=== PATIENT | male | born 1985 | race African-American/Black ===

== ENCOUNTER 2023-05-10 05:58 | Emergency (ER) | payer OTHER ==
[2023-05-10] MEDS ORDERED: MORPHINE SULFATE 4 MG/ML SYRINGE IV STA (06:37)
[2023-05-10] MEDS ORDERED: SODIUM CHLORIDE 0.9% 1,000 ML IV STA (06:37)
[2023-05-10 06:38] VITALS: TEMP 98.1
--- NOTE | 2023-05-10 06:42 | ED ---
General Adult HPI - General Source: patient, EMS Mode of arrival: EMS Limitations: no limitations <Man Smith - Last Filed: 05/10/23 06:48> <Kaz Christian - Last Filed: 05/10/23 09:06> - History of Present Illness Initial comments: Dictation was produced using [employer] dictation software. please excuse any grammatical, word or spelling errors. Chief Complaint: 37-year-old male presents to the emergency department for testicular pain History of Present Illness: Patient 37-year-old male presents emergency department for testicular pain. Patient brought in by EMS from home. One hour prior to arrival patient experienced severe acute onset left testicular pain. 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 Patient states that this procedures performed 7 or 8 years ago at [facility]. Patient has not had any issues since the procedure. He was sitting down at rest when all of a sudden felt immense and severe testicular pain. He did report associated cramping to the periumbilical area. The ROS documented in this emergency department record has been reviewed and confirmed by me. Those systems with pertinent positive or negative responses have been documented in the HPI. All other systems are other negative and/or noncontributory. (Man Smith) - Related Data Allergies Allergy/AdvReac Type Severity Reaction Status Date / Time No Known Allergies Allergy Verified 05/10/23 06:38 Review of Systems ROS Other: All systems not noted in ROS Statement are negative. <Man Smith - Last Filed: 05/10/23 06:48> ROS Other: All systems not noted in ROS Statement are negative. <Kaz Christian - Last Filed: 05/10/23 09:06> ROS Statement: Those systems with pertinent positive or pertinent negative responses have been documented in the HPI. Past Medical History History of Any Multi-Drug Resistant Organisms: None Reported Smoking Status: Never smoker Past Alcohol Use History: Occasional Past Drug Use History: None Reported <Man Smith - Last Filed: 05/10/23 06:48> General Exam Limitations: no limitations <Man Smith - Last Filed: 05/10/23 06:48> - General Exam Comments Initial Comments: PHYSICAL EXAM: General Impression: Alert and oriented x3, acute distress secondary to pain HEENT: Normocephalic atraumatic, extra-ocular movements intact, pupils equal and reactive to light bilaterally, mucous membranes moist. Cardiovascular: Heart regular rate and rhythm Chest: Able to complete full sentences, no retractions, no tachypnea Abdomen: abdomen soft, non-tender, non-distended, no organomegaly Musculoskeletal: Pulses present and equal in all extremities, no peripheral edema Motor: no focal deficits noted Neurological: CN II-XII grossly intact, no focal motor or sensory deficits noted Skin: Intact with no visualized rashes : No high riding testicle, no scrotal skin asymmetry, tender left testicle without asymmetrical swelling (Man Smith) Course <Man Smith - Last Filed: 05/10/23 06:48> Vital Signs 05/10/23 05:59 Temperature 98.1 F Pulse Rate 94 Respiratory 26 H Rate Blood Pressure 159/99 O2 Sat by Pulse 98 Oximetry - Reevaluation(s) Reevaluation #1: 05/10/23 06:41 [id number] bedside ultrasound was performed showing some blood flow to the left testicle. Case was discussed with on-call urology, Dr. no proximally 5 minutes after patient arrived. Dr. no states that testicular torsion is highly unlikely given that patient had left testicular orchipexy procedure. He does understand that clinically there is strong suspicion of testicular torsion given his clinical presentation. Dr. no still insisted formal ultrasound be performed. He understands that there could be up to a 1 hour delay with performing formal ultrasound. Dr. No understands and still would like formal ultrasound. data reduction technician notified of high priority scan in the emergency department (Man Smith) Medical Decision Making <Man Smith - Last Filed: 05/10/23 06:48> - Lab Data Result diagrams: 05/10/23 06:38 05/10/23 06:38 <Kaz Christian - Last Filed: 05/10/23 09:06> - Medical Decision Making Was pt. sent in by a medical professional or institution (DrLuis Alfredo, PA, DIESEL LOCOMOTIVE ENGINEER, urgent care, hospital, or [place] health care facility...) When possible be specific @ -No Did you speak to anyone other than the patient for history (EMS, parent, family, police, friend...)? What history was obtained from this source @ -No Did you review nursing and triage notes (agree or disagree)? Why? @ -I reviewed and agree with nursing and triage notes Were old charts reviewed (outside hosp., previous admission, EMS record, old EKG, old radiological studies, urgent care reports/EKG's, [place] health care facility records)? Report findings @ -No old charts were reviewed Differential Diagnosis (chest pain, altered mental status, abdominal pain women, abdominal pain men, vaginal bleeding, musculoskeletal, weakness, fever, dyspnea, syncope, headache, dizziness, GI bleed, back pain, seizure, CVA, palpatations, mental health)? @ -Testicular torsion, epididymitis EKG interpreted by me (3pts min.). @ -None done X-rays interpreted by me (1pt min.). @ -None done CT interpreted by me (1pt min.). @ -None done U/S interpreted by me (1pt. min.). @ -Pending scrotal ultrasound What testing was considered but not performed or refused? (CT, X-rays, U/S, labs)? Why? @ -None What meds were considered but not given or refused? Why? @ -None Did you discuss the management of the patient with other professionals (professionals i.e. , PA, DIESEL LOCOMOTIVE ENGINEER, lab, RT, psych nurse, social media marketing analyst, egg buyer, teacher, community liaison officer, comp field case manager)? Give summary @ -See above Was smoking cessation discussed for >3mins.? @ -No Was critical care preformed (if so, how long)? @ -No Were there social determinants of health that impacted care today? How? (Homelessness, low income, unemployed, alcoholism, drug addiction, transportation, low edu. Level, literacy, decrease access to med. care, residential, rehab)? @ -No Was there de-escalation of care discussed even if they declined (Discuss DNR or withdrawal of care, Hospice)? DNR status @ -No What co-morbidities impacted this encounter? (DM, HTN, Smoking, COPD, CAD, Ca ncer, CVA, ARF, Chemo, Hep., AIDS, mental health diagnosis, sleep apnea, morbid obesity)? @ -None Was patient admitted / discharged? Hospital course, mention meds given and route, prescriptions, significant lab abnormalities, going to OR and other pertinent info. @ -37-year-old male with acute onset left testicular pain. He is status post left testicular orchipexy 7 or 8 years ago. Vital signs stable. Patient in acute distress. Concern for recurrent testicular torsion. Case is discussed in detail with on-call urology, Dr. No. Dr. No request formal ultrasound despite delay. Undiagnosed new problem with uncertain prognosis? @ -No Drug Therapy requiring intensive monitoring for toxicity (Heparin, Nitro, Insulin, Cardizem)? @ -No Were any procedures done? @ -No Diagnosis/symptom? Acute, or Chronic, or Acute on Chronic? Uncomplicated (without systemic symptoms) or Complicated (systemic symptoms)? @ -. testiicular pain Side effects of treatment? @ -No Exacerbation, Progression, or Severe Exacerbation? @ -No Poses a threat to life or bodily function? How? (Chest pain, [place], [place], pneumonia, PE, COPD, DKA, ARF, appy, cholecystitis, CVA, Diverticulitis, Homicidal, Suicida l, threat to staff... and all critical care pts) @ -yes Patient care is signed out to Dr. Christian at 7:00 AM for further care. (Man Smith) Patient signed out to me pending results of scrotal ultrasound and urinalysis. Briefly, patient initially presented with left groin pain. Patient has a history of left testicular torsion status post left orchipexy. Patient states it also is in the left lower abdomen. Currently symptoms have resolved. I evaluated the patient after ultrasound. States he has been having frequent urination all morning since on onset of symptoms at 5. Symptoms have since resolved and improved once he did pass urine and would lose may have been a stone as her something that sounded solid at the bottom of his urinal. Sample is now on. Has no pain at this time. No history of kidney stones. Labs are remarkable for mild AK I with a BUN of 21 and creatinine 1.47. Urinalysis remarkable for a small amount of blood present. Remainder the labs are within acceptable limits. Patient is currently resting comfortably and is asymptomatic. I did add on a KUB x-ray to evaluate for any obvious signs of kidney stone. Patient was in agreement this plan. Patient's ultrasound is interpreted by myself reveals no evidence of testicular torsion. KUB x-ray as interpreted by myself reveals no evidence of ur eterolithiasis or kidney stones. I did discuss the case with Dr. No of urology as he was notified earlier and he did evaluate the patient. We both agreed it sounds more like a passed kidney stone. He was in agreement with discharge home. I discussed this with the patient and he remains asymptomatic at this time. We discussed his results and he was in agreement the plan. Strict return precautions discussed. I instructed the patient to follow up with their PCP in the next 1-3 days. I provided contact information for follow up with [facility] PCPs, urology. I explained that the patient should return to the emergency department if they experience any worsening symptoms. Strict return precautions were discussed with the patient. The patient expressed understanding of these instructions. I answered all questions that the patient had. The patient was discharged home in good condition with their prescriptions and follow up information. Diagnosis/symptom? @ -Left lower quadrant abdominal pain, suspect passed ureterolithiasis Acute, or Chronic, or Acute on Chronic? @ -Acute Uncomplicated (without systemic symptoms) or Complicated (systemic symptoms)? @ -Complicated Side effects of treatment? @ -none Exacerbation, Progression, or Severe Exacerbation] @ -no Poses a threat to life or bodily function? @ -no Diagnosis/symptom? @ -Acute kidney injury, mild. Suspect secondary to passed ureterolithiasis Acute, or Chronic, or Acute on Chronic? @ -Acute Uncomplicated (without systemic symptoms) or Complicated (systemic symptoms)? @ -Uncomplicated Side effects of treatment? @ -none Exacerbation, Progression, or Severe Exacerbation] @ -no Poses a threat to life or bodily function? @ -no (Kaz Christian) - Lab Data Lab Results 05/10/23 05/10/23 05/10/23 Range/Units 06:38 06:38 07:45 WBC 8.5 (3.8-10.6) k/uL RBC 4.91 (4.30-5.90) m/uL Hgb 14.9 (13.0-17.5) gm/dL Hct 45.9 (39.0-53.0) % MCV 93.4 (80.0-100.0) fL MCH 30.3 (25.0-35.0) pg MCHC 32.5 (31.0-37.0) g/dL RDW 12.3 (11.5-15.5) % Plt Count 277 (150-450) k/uL MPV 8.8 Neutrophils % 61 % Lymphocytes % 26 % Monocytes % 8 % Eosinophils % 2 % Basophils % 0 % Neutrophils # 5.2 (1.3-7.7) k/uL Lymphocytes # 2.2 (1.0-4.8) k/uL Monocytes # 0.7 (0-1.0) k/uL Eosinophils # 0.2 (0-0.7) k/uL Basophils # 0.0 (0-0.2) k/uL Sodium 137 (137-145) mmol/L Potassium 3.6 (3.5-5.1) mmol/L Chloride 106 (98-107) mmol/L Carbon Dioxide 20 L (22-30) mmol/L Anion Gap 11 mmol/L BUN 21 H (9-20) mg/dL Creatinine 1.47 H (0.66-1.25) mg/dL Est GFR (CKD-EPI)AfAm 70 (>60 ml/min/1.73 sqM) Est GFR (CKD-EPI)NonAf 61 (>60 ml/min/1.73 sqM) Glucose 122 H (74-99) mg/dL Calcium 9.2 (8.4-10.2) mg/dL Total Bilirubin 1.3 (0.2-1.3) mg/dL AST 31 (17-59) U/L ALT 24 (4-49) U/L Alkaline Phosphatase 72 (38-126) U/L Total Protein 6.8 (6.3-8.2) g/dL Albumin 3.9 (3.5-5.0) g/dL Urine Color Colorless Urine Appearance Clear (Clear) Urine pH 5.5 (5.0-8.0) Ur Specific [place] 1.006 (1.001-1.035) Urine Protein Trace H (Negative) Urine Glucose (UA) Negative (Negative) Urine Ketones Trace H (Negative) Urine Blood Small H (Negative) Urine Nitrite Negative (Negative) Urine Bilirubin Negative (Negative) Urine Urobilinogen <2.0 (<2.0) mg/dL Ur Leukocyte Esterase Negative (Negative) Urine RBC 2 (0-5) /hpf Urine WBC <1 (0-5) /hpf Urine Mucus Rare H (None) /hpf Disposition <Man Smith - Last Filed: 05/10/23 06:48> Is patient prescribed a controlled substance at d/c from ED?: No Time of Disposition: 08:40 <Kaz Christian - Last Filed: 05/10/23 09:06> Clinical Impression: Left lower quadrant abdominal pain, THEODORE (acute kidney injury) Narrative: Supsected passed ureterolithiasis (Kaz Christian) Disposition: HOME SELF-CARE Condition: Good Instructions (If sedation given, give patient instructions): Kidney Stones (ED), Abdominal Pain (ED) Referrals: None,Stated [Primary Care Provider] - 1-2 days Jarrett No MD [STAFF PHYSICIAN] - 1-2 days Forms: Area PCPs
[2023-05-10 06:58] LABS: Basophils % (A) 0 %; Eosinophils # (A) 0.2 k/uL (0-0.7); Eosinophils % (A) 2 %; HCT 45.9 % (39.0-53.0); HGB 14.9 gm/dL (13.0-17.5); Lymphocytes # (A) 2.2 k/uL (1.0-4.8); Lymphocytes % (A) 26 %; MCH 30.3 pg (25.0-35.0); MCHC 32.5 g/dL (31.0-37.0); MCV 93.4 fL (80.0-100.0); Mean Platelet Volume 8.8; Monocytes # (A) 0.7 k/uL (0-1.0); Monocytes % (A) 8 %; Neutrophils # (A) 5.2 k/uL (1.3-7.7); Neutrophils % (A) 61 %; Platelet Count 277 k/uL (150-450); RBC 4.91 m/uL (4.30-5.90); RDW 12.3 % (11.5-15.5); WBC 8.5 k/uL (3.8-10.6)
[2023-05-10 07:10] LABS: ALT 24 U/L (4-49); AST 31 U/L (17-59); African American GFR (CKD) 70 (>60 ml/min/1.73 sqM); Albumin 3.9 g/dL (3.5-5.0); Alkaline Phosphatase 72 U/L (38-126); Anion Gap 11 mmol/L; Blood Urea Nitrogen 21 mg/dL (9-20); Calcium 9.2 mg/dL (8.4-10.2); Carbon Dioxide 20 mmol/L (22-30); Chloride 106 mmol/L (98-107); Glucose 122 mg/dL (74-99); Non-African American GFR(CKD) 61 (>60 ml/min/1.73 sqM); Potassium 3.6 mmol/L (3.5-5.1); Sodium 137 mmol/L (137-145); Total Bilirubin 1.3 mg/dL (0.2-1.3); Total Protein 6.8 g/dL (6.3-8.2)
[2023-05-10 08:06] LABS: Appearance,Urine Clear (Clear); Bilirubin,Urine Negative (Negative); Blood,Urine Small (Negative); Color,Urine Colorless; Glucose,Urine (UA) Negative (Negative); Ketones,Urine Trace (Negative); Leukocyte Esterase,Urine Negative (Negative); Mucus,Urine Rare /hpf; Nitrite,Urine Negative (Negative); PH, Urine 5.5 (5.0-8.0); Protein,Urine Trace (Negative); RBC,Urine 2 /hpf (0-5); Specific Gravity,Urine 1.006 (1.001-1.035); Urobilinogen,Urine <2.0 mg/dL (<2.0); WBC,Urine <1 /hpf (0-5)
--- NOTE | 2023-05-10 08:35 | US ---
EXAMINATION TYPE: US scrotum with doppler. TECHNIQUE: Grayscale and color Doppler Duplex imaging performed of the scrotum. DATE OF EXAM: 05/10/2023 COMPARISON: NONE CLINICAL INDICATION: Male, 37 years old with history of testicular pain; Lt sided scrotal pain since 6:30 EXAM MEASUREMENTS: TESTICLES: Right Testicle: 4.3x2.5x3.2 cm Left Testicle: 4.9x2.0x3.1 cm EPIDIDYMIS HEAD: Right Epididymis: 1.4 cm Left Epididymis: 0.7 cm, Lt Epi tail anechoic area noted: 0.5x0.4x0.5cm Doppler performed to assess for testicular vascularity; good bilateral color flow and waveforms are s een. There is no evidence of testicular torsion. Presence of hydroceles: no Presence of varicoceles: Small on the left side Diffuse scrotal wall thickening up to 9 mm. Litharge Mill Operator notes: Pain subsided after patient used urinal, Bilateral blood flow seen, echogenicity similar bilaterally Litharge Mill Operator notes: Some limitations due to thick pubic hair and scrotal wall, lower frequency transdu cer used to assess bloodflow, left sided venous flow difficult to obtain IMPRESSION: 1. No sonographic evidence for testicular torsion or epididymoorchitis. 2. Diffuse scrotal skin thickening up to 9 mm. Correlate for soft tissue edema or cellulitis. 3. Small varicoceles on the left.
--- NOTE | 2023-05-10 08:37 | XR ---
EXAMINATION TYPE: XR KUB DATE OF EXAM: 05/10/2023 Comparison: None Clinical History: 37-year-old male left flank pain, eval for kidney stone Findings: A few small air-fluid levels within the central abdomen. No dilated small bowel loops. Probably trans ient. Small amount of air distally in the rectum. No evidence for free intraperitoneal air. No suspic ious calcification clearly identified. Impression: 1. No suspicious calcification is radiographically apparent. 2. Nonspecific, overall nonobstructive bowel gas pattern. No free air.
[2023-05-10 08:55] LABS: INR 1.1 (<1.2); Partial Thromboplastin Time 23.1 sec (22.0-30.0); Prothrombin Time 11.1 sec (9.0-12.0)
[2023-05-10 09:15] VITALS: BP 132/72; PULSE 82; RESP 16
--- NOTE | 2023-05-10 11:53 | P.GSCN ---
History of Present Illness Consult date: 05/10/23 Reason for Consult: left testicular pain History of present illness: This is a 37-year-old male that presented to the hospital with sudden onset left testicular pain, left lower quadrant abdominal pain. Indicated his pain was associated with dysuria and urinary urgency. He does have history of testicular torsion approximately 8 years ago and underwent left-sided orchiopexy at [facility]. He indicated no issues since his orchiopexy. Denies any trauma to the testicle. No previous history of kidney stones. No histories of UTIs or STDs. In the ER underwent a scrotal ultrasound that demonstrated evidence of normal arterial inflow and venous outflow. He indicated his symptoms have completely resolved after he voided in the ER. Urology was consulted to rule out testicular torsion Review of Systems - Constitutional Denies fever, Denies weight loss - EENT Ears, nose, mouth and throat: Denies dysphagia - Cardiovascular Denies chest pain, Denies shortness of breath - Respiratory Denies cough, Denies 7 - Gastrointestinal Reports abdominal pain, Reports nausea - Genitourinary Reports dysuria, Denies hematuria - Neurological Denies headaches, Denies syncope Past Medical History History of Any Multi-Drug Resistant Organisms: None Reported Smoking Status: Never smoker Past Alcohol Use History: Occasional Past Drug Use History: None Reported Medications and Allergies Allergies Allergy/AdvReac Type Severity Reaction Status Date / Time No Known Allergies Allergy Verified 05/10/23 06:38 Surgical - Exam Vital Signs Temp Pulse Resp BP Pulse Ox 98.1 F 94 26 H 159/99 98 05/10/23 05:59 05/10/23 05:59 05/10/23 05:59 05/10/23 05:59 05/10/23 05:59 - General no distress, moderate pain - ENT normal nares, normal mucosa - Respiratory normal expansion, normal respiratory effort - Abdomen Abdomen: soft, non tender, no distended - Genitourinary normal penis with no external lesions, testicles present, testicles non-tender - Psychiatric oriented to time, oriented to person, oriented to place Results - Labs 05/10/23 06:38 05/10/23 06:38 Abnormal Lab Results - Last 24 Hours (Table) 05/10/23 05/10/23 Range/Units 06:38 07:45 Carbon Dioxide 20 L (22-30) mmol/L BUN 21 H (9-20) mg/dL Creatinine 1.47 H (0.66-1.25) mg/dL Glucose 122 H (74-99) mg/dL Urine Protein Trace H (Negative) Urine Ketones Trace H (Negative) Urine Blood Small H (Negative) Urine Mucus Rare H (None) /hpf Diabetes panel 05/10/23 Range/Units 06:38 Sodium 137 (137-145) mmol/L Potassium 3.6 (3.5-5.1) mmol/L Chloride 106 (98-107) mmol/L Carbon Dioxide 20 L (22-30) mmol/L BUN 21 H (9-20) mg/dL Creatinine 1.47 H (0.66-1.25) mg/dL Glucose 122 H (74-99) mg/dL Calcium 9.2 (8.4-10.2) mg/dL AST 31 (17-59) U/L ALT 24 (4-49) U/L Alkaline Phosphatase 72 (38-126) U/L Total Protein 6.8 (6.3-8.2) g/dL Albumin 3.9 (3.5-5.0) g/dL Calcium panel 05/10/23 Range/Units 06:38 Calcium 9.2 (8.4-10.2) mg/dL Albumin 3.9 (3.5-5.0) g/dL Pituitary panel 05/10/23 Range/Units 06:38 Sodium 137 (137-145) mmol/L Potassium 3.6 (3.5-5.1) mmol/L Chloride 106 (98-107) mmol/L Carbon Dioxide 20 L (22-30) mmol/L BUN 21 H (9-20) mg/dL Creatinine 1.47 H (0.66-1.25) mg/dL Glucose 122 H (74-99) mg/dL Calcium 9.2 (8.4-10.2) mg/dL Adrenal panel 05/10/23 Range/Units 06:38 Sodium 137 (137-145) mmol/L Potassium 3.6 (3.5-5.1) mmol/L Chloride 106 (98-107) mmol/L Carbon Dioxide 20 L (22-30) mmol/L BUN 21 H (9-20) mg/dL Creatinine 1.47 H (0.66-1.25) mg/dL Glucose 122 H (74-99) mg/dL Calcium 9.2 (8.4-10.2) mg/dL Total Bilirubin 1.3 (0.2-1.3) mg/dL AST 31 (17-59) U/L ALT 24 (4-49) U/L Alkaline Phosphatase 72 (38-126) U/L Total Protein 6.8 (6.3-8.2) g/dL Albumin 3.9 (3.5-5.0) g/dL Assessment and Plan Assessment: 37-year-old male with previous history of testicular torsion status post orchiopexy 8 years ago. presented to the hospital with left testicular pain and voiding symptoms. Symptoms resolved following voiding in the ER. On exam and based on history not consistent with testicular torsion. testicular torsion will not be causing voiding symptoms. Additionally given his previous history of orchiopexy highly unlikely the testicle will torse in the setting of a previous orchiopexy. From urology standpoint he is okay for discharge, his symptoms could be secondary to a kidney stone given the left lower quadrant pain with radiation to the testicle and the voiding symptoms. But given the resolution in the normal KUB in the ER no further intervention from urology standpoint. If pain recurs advised to follow back up in the ER otherwise he is okay for discharge from urology standpoint
== END 2023-05-10 09:15 | disposition home or self-care (01) ==
LOC: EC 05:58
DX: N17.9 Acute kidney failure, unspecified (principal); R10.32 Left lower quadrant pain
CPT/HCPCS: 96374; 96361; 36415; 80053; 85025; 85610; 85730; 81001; 74018; 93975; 76870; 99285; J2270; 99284